=== PATIENT | female | born 1990 | race Caucasian/White ===

== ENCOUNTER 2021-01-09 13:14 | Emergency (ER) | payer MEDICAID, SELFPAY ==
[2021-01-09 13:29] VITALS: BP 109/85; PULSE 106; RESP 16; TEMP 36.3; O2SAT 99
[2021-01-09 13:30] VITALS: BP 109/85; PULSE 106; RESP 16; TEMP 36.3; O2SAT 99
--- NOTE | 2021-01-09 13:54 | ED.NAVMDI ---
HPI - Nausea/Vomiting/Diarrhea General Chief complaint: Nausea/Vomiting/Diarrhea Stated complaint: Throwing Up,Nausea Time Seen by Provider: 01/09/21 13:39 Source: patient and RN notes reviewed Mode of arrival: ambulatory Limitations: no limitations History of Present Illness HPI Narrative: Patient presents today with a 1 week history of nausea, fatigue, sweats, rhinorrhea she has been, vomiting, diarrhea. Patient last vomited 3 days ago, but nausea persists. Patient had a solid bowel movement yesterday, but a slightly loose stool today. Denies blood or mucus in the stool or emesis. Denies fever. States her symptoms generally are feeling much improved since yesterday. She took a dose of Tylenol and usually, which did provide some relief. 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 States she has needed colonoscopies every 4 years, but has not had one since her surgery. Related Data Home Medications Medication Instructions Recorded Confirmed No Home Medications 01/09/21 01/09/21 Allergies Allergy/AdvReac Type Severity Reaction Status Date / Time ketorolac Allergy Intermediate ITCHING OR Verified 06/17/16 19:29 RASH--- PT UNSURE, BUT + NAUSEA SERTRALINE HCL Allergy Unknown Uncoded 06/17/16 19:29 Review of Systems Review of Systems: Narrative: CONSTITUTIONAL: Denies body aches, fever, chills. + Fatigue, sweats EYES: Denies visual changes, redness, or discharge. ENT: Denies congestion, sore throat, or otalgia.+ Rhinorrhea CARDIOVASCULAR: Denies chest pain, palpitations, or edema. RESPIRATORY: Denies cough or dyspnea. GASTROINTESTINAL: Denies abdominal pain. + Nausea, vomiting, diarrhea GENITOURINARY: Denies dysuria or hematuria. SKIN: Denies rash, itching, or wounds. MUSCULOSKELETAL: Denies back pain, joint pain, or myalgia. NEUROLOGIC: Denies headache, numbness, tingling, or weakness. PSYCH: Denies depression or anxiety. [facility] Past Medical History Medical History (Updated 01/09/21 @ 16:24 by Elisha Estrada, [employer], ) Meckels diverticulum Comments At time of signature, I have reviewed and agree with nursing past medical, surgical, social and family history unless otherwise noted. Please see nursing chart for further information. There is no relevant family history pertinent to the presenting complaint Exam Narrative: Exam Narrative: GENERAL: Well-appearing, well-nourished, and in no acute distress. HEAD: Normocephalic, atraumatic. EYES: EOMI. No redness or drainage. Conjunctivae normal. ENT: Mucous membranes pink and moist. Nares clear. No rhinorrhea. TMs normal bilaterally. Throat normal. Uvula midline. NECK: Normal AROM. Supple. No lymphadenopathy. CHEST: No respiratory distress. Clear to auscultation. HEART: Regular rate and rhythm. No murmur appreciated. Normal peripheral pulses. ABDOMEN: Soft, nontender, nondistended, normal active bowel sounds. MUSCULOSKELETAL: No bony tenderness. EXTREMITIES: Normal range of motion. No edema. SKIN: Warm, dry, no rash. Capillary refill normal. Normal skin turgor. NEURO: No focal deficits. Alert and oriented x3. Gait steady. PSYCH: Normal affect. No signs of depression or anxiety. Course Vital Signs Vital signs: Vital Signs Temperature 97.3 F L 01/09/21 13:29 Pulse Rate 106 H 01/09/21 13:29 Respiratory Rate 16 01/09/21 13:29 Blood Pressure 109/85 01/09/21 13:29 Pulse Oximetry 99 01/09/21 13:29 Temperature 97.3 F L 01/09/21 13:30 Pulse Rate 106 H 01/09/21 13:30 Respiratory Rate 16 01/09/21 13:30 Blood Pressure 109/85 01/09/21 13:30 Pulse Oximetry 99 01/09/21 13:30 Reviewed. Pt has been instructed to follow up with her PCP regarding her elevated blood pressure today. MDM - Nausea/Vomiting/Diarrhea Differential Diagnosis Differential diagnosis: Likely food poisoning, gastroenteritis, dehydration and other (Viral syndrome) Critical Care Time Critical Care Time Critical Care
== END 2021-01-09 14:01 | disposition home or self-care (01) ==
PROVIDERS: Emergency Provider Nurse Practitioner
DX: R11.2 Nausea with vomiting, unspecified (principal); R19.7 Diarrhea, unspecified
CPT/HCPCS: 99211; G0463

== ENCOUNTER 2023-03-31 10:00 | Emergency (ER) | payer OTHER, SELFPAY ==
[2023-03-31 10:05] VITALS: BP 101/78; PULSE 125; RESP 24; TEMP 37.1; O2SAT 99
[2023-03-31] MEDS: HALOPERIDOL LACTATE 5 MG/ML VIAL IM (10:30)
[2023-03-31] MEDS: LORazepam INJ (*CRX) 2 MG/ML VIAL IM (10:30)
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
[2023-03-31 10:43] LABS: Basophils Absolute Auto 0.1 K/mm3 (0.0-0.1); Basophils Percent Auto 0.9 % (0.2-1.2); Eosinophils Percent Auto 0.2 % (0-4.4); Hematocrit 47.3 % (37.0-47.0); Hemoglobin 15.2 g/dL (12.0-15.0); Immature Granulocyte Absolute 0.07 K/mm3 (0.00-0.031); Immature Granulocyte Percent A 0.5 % (0-0.5); Lymphocytes Absolute Auto 1.49 K/mm3 (0.9-3.2); Mean Corpuscular HGB Conc 32.1 g/dl (32-36); Mean Corpuscular Hemoglobin 27.5 pg (26-34); Mean Corpuscular Volume 85.5 fl (80-100); Monocytes Absolute Auto 0.7 K/mm3 (0.1-0.6); Monocytes Percent Auto 4.7 % (2.6-8.5); Neutrophils Absolute Auto 12.5 K/mm3 (1.3-6.7); Neutrophils Percent Auto 83.7 % (45.5-73.1); Platelet Count Result 385 k/mm3 (150-375); Red Blood Count 5.53 M/mm3 (4.2-5.4); Red Cell Distribution Width 13.4 % (11.5-14.5); White Blood Count 14.9 K/mm3 (4.5-10.0)
[2023-03-31 10:48] LABS: Appearance Urine Slightly Cloudy (Clear); Bilirubin Urine 2+ (Negative); Blood Urine Negative (Negative); Color Urine Yellow (Yellow); Glucose Urine UA Negative (Negative); Ketones Urine 4+ mg/dL (Negative); Leukocyte Esterase Ur Trace LEU/UL (Negative); Nitrate Urine Negative (Negative); Protein Urine 2+ mg/dL (Negative); Specific Grav Ur >= 1.030 (1.001-1.035); Urobilinogen Urine 0.2 mg/dL (<2.0); pH Urine 5.5 (5.0-9.0)
[2023-03-31 10:55] LABS: Alanine Aminotransferase 52 U/L (6-35); Alkaline Phosphatase 92 U/L (38-126); Anion Gap 13 mmol/L (8-16); Aspartate Amino Transferase 60 U/L (14-36); Bilirubin,Total 1.8 mg/dL (0.2-1.3); Blood Urea Nitrogen 13 mg/dL (7-17); Calcium 9.8 mg/dL (8.4-10.2); Carbon Dioxide 18 mmol/L (22-30); Chloride 108 mmol/L (98-107); Estimated CRCL calculation 84 ml/min; Estimated Glomerular Filt Rate > 60; Glucose 112 mg/dL (65-110); Magnesium 1.7 mg/dL (1.6-2.3); Potassium 3.6 mmol/L (3.4-5.0); Sodium 139 mmol/L (137-145)
[2023-03-31 10:56] LABS: Acetaminophen < 10 ug/mL (10-30); Ethanol < 10 mg/dL (<10); Salicylate < 1.0 mg/dL (2-20)
[2023-03-31 11:08] LABS: Barbiturate Screen Urine Negative (Negative); Benzodiazepines Screen Urine Positive (Negative)
[2023-03-31 11:11] LABS: Cannabinoid Screen Urine Positive (Negative); Cocaine Screen Urine Negative (Negative); Methadone Screen Urine Negative (Negative); Opiate Screen Urine Negative (Negative); Phencyclidine Screen Urine Negative (Negative)
[2023-03-31 11:25] LABS: Thyroid Stimulating Hormone 0.324 uIU/mL (0.465-4.680)
[2023-03-31 11:30] LABS: Add Urine Microscopic? YES
[2023-03-31 11:32] LABS: RBC Urine 0-2 /hpf (0-2); Squamous Epithelial Cell Urine Moderate /hpf (Few)
[2023-03-31] MEDS: SODIUM CHLORIDE 0.9% IV 1,000 ML 999 ML IV CONT ×2 (12:02)
[2023-03-31 12:31] LABS: SARS-CoV-2 RNA PCR Negative (Negative)
--- NOTE | 2023-03-31 18:46 | PC.NURSE ---
Crisis at bedside to evaluate the patient. Patient began to escalate and become more manic. Attempting to verbal deescalate the patient at this time.
--- NOTE | 2023-03-31 18:50 | PC.NURSE ---
verbal deescalation was unsuccessful. patient given 1mg of ativan via IV
[2023-03-31] MEDS: LORazepam INJ (*CRX) 2 MG/ML VIAL 1 MG IV PUSH (18:51)
[2023-03-31 19:44] VITALS: BP 134/86; PULSE 100; RESP 14; O2SAT 100
--- NOTE | 2023-03-31 20:38 | PC.NURSE ---
[facility] called to evaluate patient
--- NOTE | 2023-03-31 21:56 | PC.NURSE ---
[facility] HERE TO EVALUATE PATIENT.
--- NOTE | 2023-03-31 23:58 | PC.NURSE ---
Pt resting at this time. Sitter at bedside. Discussed POC w/ behavior health, plan is to admit pt for treatment. Pt aware of POC.
--- NOTE | 2023-04-01 00:19 | PC.NURSE ---
Pt accepted to [facility], requested antibiotics to be given to treat UTI. EDP Dr Willard made aware and antibiotics initiated. Pt updated and given medication. [facility] states will call back with bed assignment.
[2023-04-01] MEDS: CEPHALEXIN 500 MG CAPSULE PO (00:37)
[2023-04-01 00:38] VITALS: BP 144/87; PULSE 86; RESP 19; TEMP 36.7; O2SAT 100
== END 2023-04-01 03:45 ==
PROVIDERS: Emergency Medicine; Emergency Provider Emergency Medicine; PCP Internal Medicine
DX: F23 Brief psychotic disorder (principal); F15.10 Other stimulant abuse, uncomplicated; Z20.822 Contact with and (suspected) exposure to COVID-19; Z87.891 Personal history of nicotine dependence
CPT/HCPCS: 36415; 80053; 80307; 81001; 81025; 83735; 84443; 85025; 87635; 96361; 96372; 96374; 99285; A9270; J1630; J2060; J7030

== ENCOUNTER 2025-01-15 10:47 | Emergency (ER) | payer OTHER, SELFPAY ==
[2025-01-15 10:55] VITALS: BP 117/64; PULSE 91; RESP 16; TEMP 36.7; O2SAT 100
[2025-01-15 11:13] LABS: EDSTREPNEGPOS1 Negative (Negative)
--- NOTE | 2025-01-15 11:30 | ED_ITS ---
HPI - URI/Sore Throat General Chief Complaint: Upper Respiratory Infection Stated Complaint: sore throat Time Seen by Provider: 01/15/25 11:30 Source: patient, RN notes reviewed and old records reviewed Mode of arrival: ambulatory Limitations: no limitations History of Present Illness HPI Narrative: 34-year-old female presents to the [facility] with concerns for strep throat. Patient reports that 1 week ago started with some fatigue. Two days ago started with some ear pressure and a sore throat. Requesting a work note. No treatment prior to arrival Related Data Home Medications ?Medication ?Instructions ?Recorded ?Confirmed ?Last Taken ?Type hydroxyzine HCl 50 mg tablet 50 mg PO .Q12 PRN psych 01/15/25 01/15/25 Unknown History quetiapine 25 mg tablet (Seroquel) 25 mg PO DAILY@0800 01/15/25 01/15/25 Unknown History quetiapine 300 mg tablet 300 mg PO HS 01/15/25 01/15/25 Unknown History Allergies Allergy/AdvReac Type Severity Reaction Status Date / Time sertraline Allergy Severe Anaphylaxis Verified 01/15/25 11:19 ketorolac Allergy Intermediate ITCHING OR Verified 01/15/25 11:19 RASH--- PT UNSURE, BUT + NAUSEA Review of Systems Review of Systems: All systems reviewed & are unremarkable except as noted in HPI and below Constitutional: Constitutional: Reports no additional constitutional complaints ENT: Reports as per HPI Cardiovascular: Cardiovascular: Reports no additional cardiovascular complaints, Denies chest pain and Denies dyspnea Respiratory: Respiratory: Reports no additional respiratory complaints, Denies chest congestion, Denies cough and Denies dyspnea Musculoskeletal: Musculoskeletal: Reports no additional musculoskeletal complaints Integumentary/Breasts: Skin/Breast: Reports system reviewed and no additional complaints, except as docu PMFSH Past Medical History Medical History (Updated 01/15/25 @ 20:17 by Yuliana Toney APRN) Tubal Urolithiasis Meckel diverticulum Depression Bipolar 1 disorder, manic, moderate Abdominal pain Dizziness Painful joint Meckels diverticulum Surgical History Surgical History (Updated 08/23/22 @ 11:09 by Delia FlowersMD) S/P small bowel resection Family History Family History (Updated 08/23/22 @ 11:12 by Delia FlowersMD) Father Depression Mother Carcinoma of colon Depression Cervical adenocarcinoma Social History Social History (Updated 08/23/22 @ 11:15 by Delia FlowersMD) Smoking packs per day: 0.5 Smoking cigarettes per day: 10.0 Years smoked: 10 Smoking pack-years: 5.00 Smoking status: Former smoker Tobacco type: e-cigarettes/vaping Alcohol intake: current Drinks per week: 2 Substance use type: methamphetamine and unknown Lack of Transportation: No Lack of Food: Sometimes True Current Housing: I Have Housing Concerned About Future Housing: No Difficulty Paying Gas/Electric Bills: No Difficulty Paying for Meds: No Currently Unemployed: No Education: High School Diploma/GED Difficulty w/ Childcare or Family Care: No Comments At the time of my signature, I reviewed and agree with the nursing past medical, surgical, social, and family history. There is no relevant family history pertinent to the patient complaint. Exam Const: General: cooperative, healthy appearing, comfortable, no acute distress, well developed, alert and well nourished Nutritional Appearance: well nourished Orientation/consciousness: patient oriented x3 Limitations: no limitations HENMT: Head: normal to inspection Ears: hearing grossly normal bilaterally, external ears normal, TM's normal bilaterally, EAC's normal, mastoids normal and no periauricular adenopathy Face/Nose/Sinus: Normal external nose present, Normal nares present and No nasal discharge present Mouth: Yes Normal oral and palatal mucosa present, Yes lip normal, Yes tongue normal and Yes moist mucous membranes Throat: posterior oropharynx normal, uvula midline, postnasal drainage and no uvular edema Eyes: General: appearance normal, both eyes and all related structures Alignment and Position: alignment normal Neck: Neck: normal visual inspection, full ROM, no lymphadenopathy and no meningeal signs Chest: Chest palpation & inspection: normal inspection of the chest Resp: Effort & Inspection: normal respiratory effort and able to speak in complete sentences Auscultation: clear to auscultation bilaterally, no crackles, no rales, no rhonchi and no wheezes Cardio: Rate: regular rate Skin: General skin exam: normal color and no rashes or lesions noted Neuro: General: patient oriented x3, gait normal, moves all extremities and no meningeal signs Cognition (Neuro): normal cognition Speech: normal speech Gait exam (Neuro): Normal gait present Extrem: General: normal to inspection, full ROM, capillary refill normal and normal gait Psych: Appearance: grossly normal and well kempt Mental Status: mental status grossly normal Speech and movement: Normal speech and movement present and Clear speech present Affect: normal affect Attitude: cooperative Course Course Level of Care: Express Care Visit Vital Signs Vital signs: Vital Signs Temperature 98.1 F 01/15/25 10:55 Pulse Rate 91 01/15/25 10:55 Respiratory Rate 16 01/15/25 10:55 Blood Pressure 117/64 01/15/25 10:55 Pulse Oximetry 100 01/15/25 10:55 Oxygen Delivery Room Air 01/15/25 10:55 Temperature 98.1 F 01/15/25 10:55 Pulse Rate 91 01/15/25 10:55 Respiratory Rate 16 01/15/25 10:55 Blood Pressure 117/64 01/15/25 10:55 Pulse Oximetry 100 01/15/25 10:55 Oxygen Delivery Room Air 01/15/25 10:55 Reviewed MDM - URI/Sore Throat MDM Narrative Medical decision making narrative: Patient sitting comfortably in exam room. Nontoxic, vitals stable. Patient presents with 2 day history of sore throat, generalized fatigue for 1 week. Patient of negative strep, will culture Patient appropriate for outpatient treatment with close follow-up, requesting a work note Discharge instructions reviewed with patient, as well as provided in writing per nursing staff. The instructions also include specific and strict return/GO TO THE ER as well as f/u information. All questions have been answered, and the patient deny any further questions with discharge and discharge plan. Some parts of this dictation were generated by voice recognition software and may contain typographical and/or grammatical inaccuracies. Differential Diagnosis Differential diagnosis: Likely upper respiratory infection, otitis media, sinusitis, viral infection, bronchitis and pharyngitis Lab Data Labs: Lab Results 01/15/25 Range/Units 10:57 POC Grp A Strep Screen Negative (Negative) Reviewed Critical Care Time Critical Care Time Critical Care Time: No Discharge Plan Discharge Clinical Impression: Pharyngitis Qualifiers: Pharyngitis/tonsillitis etiology: unspecified etiology Qualified Code(s): J02.9 - Acute pharyngitis, unspecified Patient Disposition: Home Condition: Stable Instructions: Antibiotic Form, Pharyngitis (ED), Postnasal Drip (DC) Additional Instructions: Take Claritin or Zyrtec daily Use saltwater gargle Follow-up with your primary care provider Patient Language: Bengali Prescriptions: No Action hydroxyzine HCl 50 mg tablet 50 mg PO .Q12 PRN (Reason: psych) quetiapine 300 mg tablet 300 mg PO HS quetiapine [Seroquel] 25 mg tablet 25 mg PO DAILY@0800 Benefiber Clear SF (dextrin) 3 gram/3.5 gram powder in packet 1 packet PO DAILY Qty: 28 1RF Rx Instructions: mix into at least 4 oz water or juice before administering ibuprofen 600 mg tablet 600 mg PO TID PRN (Reason: pain) Qty: 60 1RF Follow-up/Referrals: UNKNOWN,DOCTOR [Primary Care Provider] - Stand Alone Forms: Work/School Release IP Time of Disposition: 11:35
== END 2025-01-15 11:43 | disposition home or self-care (01) ==
PROVIDERS: Emergency Provider Nurse Practitioner
DX: J02.9 Acute pharyngitis, unspecified (principal); F17.290 Nicotine dependence, other tobacco product, uncomplicated; F31.9 Bipolar disorder, unspecified
CPT/HCPCS: 87081; 87880; 99213; G0463

== ENCOUNTER 2025-06-27 09:43 | Emergency (ER) | payer OTHER, SELFPAY ==
--- NOTE | 2025-06-27 09:51 | ED.URI ---
HPI - URI/Sore Throat General Chief Complaint: Upper Respiratory Infection Stated Complaint: Cough Time Seen by Provider: 06/27/25 10:17 Source: patient and RN notes reviewed Mode of arrival: ambulatory Limitations: no limitations History of Present Illness HPI Narrative: 34-year-old female presents with concern of for 3-4 day history of cough, body aches, runny nose, stuffy nose. She reports productive cough. She is taking husa-lmi-ivsowdr medications without relief. She denies fever MD elicited complaint: cough Related Data Home Medications ?Medication ?Instructions ?Recorded ?Confirmed ?Last Taken ?Type hydroxyzine HCl 50 mg tablet 50 mg PO .Q12 PRN psych 01/15/25 01/15/25 Unknown History quetiapine 25 mg tablet (Seroquel) 25 mg PO DAILY@0800 01/15/25 01/15/25 Unknown History quetiapine 300 mg tablet 300 mg PO HS 01/15/25 01/15/25 Unknown History cariprazine 1.5 mg capsule mg 06/27/25 Unknown History (Figueroa) Allergies Allergy/AdvReac Type Severity Reaction Status Date / Time sertraline Allergy Severe Anaphylaxis Verified 06/27/25 10:03 ketorolac Allergy Intermediate ITCHING OR Verified 06/27/25 10:03 RASH--- PT UNSURE, BUT + NAUSEA Review of Systems Review of Systems: CONSTITUTIONAL: Reports malaise. Denies chills, sweats, or fever. EYES: Denies visual changes, redness, or discharge. ENT: Reports rhinorrhea, congestion. Denies sinus pain, otalgia and sore throat. CARDIOVASCULAR: Denies chest pain, palpitations, or edema. RESPIRATORY: Reports cough. Denies dyspnea. GASTROINTESTINAL: Denies abdominal pain, nausea, vomiting, diarrhea SKIN: Denies rash or itching. MUSCULOSKELETAL: Reports myalgia. NEUROLOGIC: Denies headache. All systems reviewed & are unremarkable except as noted in HPI and below PMFSH Past Medical History Medical History (Updated 06/27/25 @ 10:25 by Yuliana Miller NP) Tubal Urolithiasis Meckel diverticulum Depression Bipolar 1 disorder, manic, moderate Abdominal pain Dizziness Painful joint Meckels diverticulum Surgical History Surgical History (Updated 08/23/22 @ 11:09 by Dleia Flowers, ) S/P small bowel resection Family History Family History (Updated 08/23/22 @ 11:12 by Delia KruegerMD) Father Depression Mother Carcinoma of colon Depression Cervical adenocarcinoma Social History Social History (Updated 08/23/22 @ 11:15 by Delia KruegerMD) Smoking packs per day: 0.5 Smoking cigarettes per day: 10.0 Years smoked: 10 Smoking pack-years: 5.00 Smoking status: Former smoker Tobacco type: e-cigarettes/vaping Alcohol intake: current Drinks per week: 2 Substance use type: methamphetamine and unknown Lack of Transportation: No Lack of Food: Sometimes True Current Housing: I Have Housing Concerned About Future Housing: No Difficulty Paying Gas/Electric Bills: No Difficulty Paying for Meds: No Currently Unemployed: No Education: High School Diploma/GED Difficulty w/ Childcare or Family Care: No Comments At time of signature, agree with nursing past medical, surgical, social and family history. There is no relevant family history pertinent to the presenting complaint Exam Narrative: GENERAL: Well-appearing, well-nourished, and in no acute distress. HEAD: Normocephalic EYES: PERRLA, conjunctivae clear ENT: Nares clear. Mucous membranes moist. TM pearly jensen with sharp light reflex bilaterally; no tragal tenderness. Oropharynx not erythematous without lesions. Tonsils not enlarged and without exudate, no drooling, no hoarseness, no trismus, uvula midline. NECK: Supple. No lymphadenopathy CHEST: Clear to auscultation, breath sounds equal. No wheezing, rhonchi, rales, or stridor. No respiratory distress, speaks in full sentences. HEART: Regular rate and rhythm. No murmur heard. SKIN: Warm, dry, no rash. NEURO: Alert and oriented x3. PSYCH: Normal mood and affect Course Course Emergency Course: Patient is aware of diagnosis, understands and agrees to treatment plan. Anticipatory guidance given. Patient agrees to follow-up as directed and is aware of reasons to seek care at the emergency department. Portions of this record may have been created with voice recognition software Level of Care: Express Care Visit Vital Signs Vital signs: Reviewed. MDM - URI/Sore Throat MDM Narrative Medical decision making narrative: Differential diagnosis considered: Arreola virus, strep pharyngitis, allergic rhinitis, upper respiratory tract infection, sinusitis, rhinosinusitis, nasopharyngitis. viral pharyngitis, otitis media, otitis externa, pneumonia, bronchitis, viral cough syndrome, viral syndrome, and influenza. Exam findings show no acute concerns or changes; patient is non-toxic appearing and is in no distress. Patient is appropriate for outpatient treatment and follow-up. Lab Data Attestation: I reviewed the patient's lab results. Critical Care Time Critical Care Time Critical Care Time: No Discharge Plan Discharge Clinical Impression: Upper respiratory infection Patient Disposition: Home Condition: Stable Instructions: Upper Respiratory Infection (ED) Additional Instructions: Viral illness may last between 7-21 days; antibiotics do not cure viral illness and are NOT recommended at this time. Recommend antihistamine such as Benadryl at night time and Zyrtec or Evelia during the day Cough syrup may cause drowsiness; avoid driving or take it at night time. Also, recommend symptomatic treatment includes: rest, fluids, and increase humidity of the air at home. Recommend Acetaminophen as directed on the bottle to reduce fever, pain, headache. Avoid smoking/second-hand smoke. Please schedule a follow-up visit with your personal physician for further evaluation and treatment within 3-5days. If your symptoms persist, change or worsen significantly before you can contact your personal physician then please, without delay, go to the emergency department for further evaluation. Patient Language: Nepalese Prescriptions: New promethazine-DM 6.25-15 mg/5 mL syrup 5 ml PO Q4-6H PRN (Reason: cough) Qty: 120 0RF methylprednisolone [Medrol (Naveen)] 4 mg tablets,dose pack See Rx Instructions .ROUTE .COMPLEX Qty: 21 0RF Rx Instructions: orally per package directions No Action hydroxyzine HCl 50 mg tablet 50 mg PO .Q12 PRN (Reason: psych) quetiapine 300 mg tablet 300 mg PO HS quetiapine [Seroquel] 25 mg tablet 25 mg PO DAILY@0800 Vraylar 1.5 mg capsule Benefiber Clear SF (dextrin) 3 gram/3.5 gram powder in packet 1 packet PO DAILY Qty: 28 1RF Rx Instructions: mix into at least 4 oz water or juice before administering ibuprofen 600 mg tablet 600 mg PO TID PRN (Reason: pain) Qty: 60 1RF Follow-up/Referrals: PHYSICIAN,SURVEY CHIEF [Primary Care Provider, Internal Medicine] Stand Alone Forms: Work/School Release IP Time of Disposition: 10:26
[2025-06-27 09:53] VITALS: BP 96/60; PULSE 67; RESP 18; TEMP 37; O2SAT 98
[2025-06-27 10:23] LABS: EDCOVIDSCREEN Negative (Negative); EDINFLUASCREEN Negative (Negative); EDINFLUBSCREEN Negative (Negative)
== END 2025-06-27 10:30 | disposition home or self-care (01) ==
PROVIDERS: Emergency Provider Nurse Practitioner
DX: J06.9 Acute upper respiratory infection, unspecified (principal); Z20.822 Contact with and (suspected) exposure to COVID-19; Z87.891 Personal history of nicotine dependence; F31.9 Bipolar disorder, unspecified
CPT/HCPCS: 87426; 87804; 99213; G0463

== ENCOUNTER 2025-07-22 10:36 | Emergency (ER) | payer OTHER, SELFPAY ==
[2025-07-22 10:42] VITALS: BP 100/69; PULSE 66; RESP 18; TEMP 36.4; O2SAT 98
--- NOTE | 2025-07-22 10:49 | ED.URI ---
HPI - URI/Sore Throat General Chief Complaint: Upper Respiratory Infection Stated Complaint: COVID+ Time Seen by Provider: 07/22/25 10:49 Source: patient and RN notes reviewed Mode of arrival: ambulatory Limitations: no limitations History of Present Illness HPI Narrative: 34-year-old female presents concern for returning back to work after having COVID. She reports she tested positive for COVID on August 16, she has been symptom free, fever free for 36 hours. She is wanting to go back to work at [employer]. MD elicited complaint: cough and sore throat Related Data Home Medications ?Medication ?Instructions ?Recorded ?Confirmed ?Last Taken ?Type hydroxyzine HCl 50 mg tablet 50 mg PO .Q12 PRN psych 01/15/25 01/15/25 Unknown History quetiapine 25 mg tablet (Seroquel) 25 mg PO DAILY@0800 01/15/25 01/15/25 Unknown History quetiapine 300 mg tablet 300 mg PO HS 01/15/25 01/15/25 Unknown History cariprazine 1.5 mg capsule mg 06/27/25 Unknown History (Vrandreaslar) Allergies Allergy/AdvReac Type Severity Reaction Status Date / Time sertraline Allergy Severe Anaphylaxis Verified 07/22/25 10:47 ketorolac Allergy Intermediate ITCHING OR Verified 07/22/25 10:47 RASH--- PT UNSURE, BUT + NAUSEA Review of Systems Review of Systems: CONSTITUTIONAL: Denies malaise, chills, sweats, or fever. EYES: Denies visual changes, redness, or discharge. ENT: Denies rhinorrhea, congestion, sinus pain, otalgia and sore throat. CARDIOVASCULAR: Denies chest pain, palpitations, or edema. RESPIRATORY: Denies cough. Denies dyspnea. GASTROINTESTINAL: Denies abdominal pain, nausea, vomiting, diarrhea SKIN: Denies rash or itching. MUSCULOSKELETAL: Denies myalgia. NEUROLOGIC: Denies headache. All systems reviewed & are unremarkable except as noted in HPI and below PMFSH Past Medical History Medical History (Updated 07/22/25 @ 10:52 by Yuliana Miller, DARINEL) Tubal Urolithiasis Meckel diverticulum Depression Bipolar 1 disorder, manic, moderate Abdominal pain Dizziness Painful joint Meckels diverticulum Surgical History Surgical History (Updated 08/23/22 @ 11:09 by Delia Lynch MD) S/P small bowel resection Family History Family History (Updated 08/23/22 @ 11:12 by Delia Lynch MD) Father Depression Mother Carcinoma of colon Depression Cervical adenocarcinoma Social History Social History (Updated 08/23/22 @ 11:15 by Delia KruegerMD) Smoking packs per day: 0.5 Smoking cigarettes per day: 10.0 Years smoked: 10 Smoking pack-years: 5.00 Smoking status: Former smoker Tobacco type: e-cigarettes/vaping Alcohol intake: current Drinks per week: 2 Substance use type: methamphetamine and unknown Lack of Transportation: No Lack of Food: Sometimes True Current Housing: I Have Housing Concerned About Future Housing: No Difficulty Paying Gas/Electric Bills: No Difficulty Paying for Meds: No Currently Unemployed: No Education: High School Diploma/GED Difficulty w/ Childcare or Family Care: No Comments At time of signature, agree with nursing past medical, surgical, social and family history. There is no relevant family history pertinent to the presenting complaint Exam Narrative: GENERAL: Well-appearing, well-nourished, and in no acute distress. HEAD: Normocephalic EYES: PERRLA, conjunctivae clear ENT: Nares clear. Mucous membranes moist. TM pearly jensne with sharp light reflex bilaterally; no tragal tenderness. Oropharynx not erythematous without lesions. Tonsils not enlarged and without exudate, no drooling, no hoarseness, no trismus, uvula midline. NECK: Supple. No lymphadenopathy CHEST: Clear to auscultation, breath sounds equal. No wheezing, rhonchi, rales, or stridor. No respiratory distress, speaks in full sentences. HEART: Regular rate and rhythm. No murmur heard. SKIN: Warm, dry, no rash. NEURO: Alert and oriented x3. PSYCH: Normal mood and affect Course Course Emergency Course: Patient is aware of diagnosis, understands and agrees to treatment plan. Anticipatory guidance given. Patient agrees to follow-up as directed and is aware of reasons to seek care at the emergency department. Portions of this record may have been created with voice recognition software Level of Care: Express Care Visit Vital Signs Vital signs: Vital Signs Temperature 97.5 F L 07/22/25 10:42 Pulse Rate 66 07/22/25 10:42 Respiratory Rate 18 07/22/25 10:42 Blood Pressure 100/69 07/22/25 10:42 Pulse Oximetry 98 07/22/25 10:42 Oxygen Delivery Room Air 07/22/25 10:42 Temperature 97.5 F L 07/22/25 10:42 Pulse Rate 66 07/22/25 10:42 Respiratory Rate 18 07/22/25 10:42 Blood Pressure 100/69 07/22/25 10:42 Pulse Oximetry 98 07/22/25 10:42 Oxygen Delivery Room Air 07/22/25 10:42 Reviewed. MDM - URI/Sore Throat MDM Narrative Medical decision making narrative: Differential diagnosis considered: Arreola virus, strep pharyngitis, allergic rhinitis, upper respiratory tract infection, sinusitis, rhinosinusitis, nasopharyngitis. viral pharyngitis, otitis media, otitis externa, pneumonia, bronchitis, viral cough syndrome, viral syndrome, and influenza. Exam findings show no acute concerns or changes; patient is non-toxic appearing and is in no distress. Patient is appropriate for outpatient treatment and follow-up. Lab Data Attestation: I reviewed the patient's lab results. Critical Care Time Critical Care Time Critical Care Time: No Discharge Plan Discharge Clinical Impression: COVID Patient Disposition: Home Condition: Stable Instructions: How to Recover from COVID-19 at Home (ED) Additional Instructions: 1) Please follow-up with your primary care doctor as needed. 2) If you have any worsening of symptoms or any other urgent concerns please go to the ER. 3) Please read and follow information included in discharge instructions. Patient Language: Togolese Prescriptions: No Action hydroxyzine HCl 50 mg tablet 50 mg PO .Q12 PRN (Reason: psych) quetiapine 300 mg tablet 300 mg PO HS quetiapine [Seroquel] 25 mg tablet 25 mg PO DAILY@0800 Vraylar 1.5 mg capsule promethazine-DM 6.25-15 mg/5 mL syrup 5 ml PO Q4-6H PRN (Reason: cough) Qty: 120 0RF Benefiber Clear SF (dextrin) 3 gram/3.5 gram powder in packet 1 packet PO DAILY Qty: 28 1RF Rx Instructions: mix into at least 4 oz water or juice before administering ibuprofen 600 mg tablet 600 mg PO TID PRN (Reason: pain) Qty: 60 1RF Follow-up/Referrals: PHYSICIAN,ECONOMICS PROFESSOR [Primary Care Provider, Internal Medicine] Stand Alone Forms: Work/School Release IP
== END 2025-07-22 10:55 | disposition home or self-care (01) ==
PROVIDERS: Emergency Provider Nurse Practitioner
DX: U07.1 COVID-19 (principal); F31.9 Bipolar disorder, unspecified; Z87.891 Personal history of nicotine dependence
CPT/HCPCS: 99211; G0463